=== PATIENT | male | born 1960 | race Caucasian/White ===

== ENCOUNTER 2017-02-07 09:33 | Inpatient (IN) | payer BC, OTHER ==
[2017-02-07] VITALS (14 sets, daily range): BP systolic 114–132; BP diastolic 76–92; PULSE 102–117; RESP 6–23; TEMP 99; Ht 177.8 cm; Wt 139.9 kg
[~2017-02-07] VITALS: Ht 177.8 cm; Wt 139.9 kg
[2017-02-07] MEDS ORDERED: NITROGLYCERIN 2% 1 GM OINT PKT TD STA (09:51)
[2017-02-07] MEDS ORDERED: ASPIRIN 81 MG TAB PO STA (09:51)
[2017-02-07] MEDS ORDERED: SOD CHLORIDE 0.9% 1,000 ML IV STA (09:51)
[2017-02-07] MEDS ORDERED: ONDANSETRON 4 MG INJ IV STA ×2 (09:57→12:24)
[2017-02-07] MEDS ORDERED: morphine 4 MG/ML VIAL IV STA (09:57)
[2017-02-07] MEDS ORDERED: NITROGLYCERIN (SL) 0.4 MG TAB SL PRN (10:00)
[2017-02-07] MEDS ORDERED: LOSA100T7 PO (10:34)
[2017-02-07] MEDS ORDERED: OMEP20CA16 PO (10:34)
--- NOTE | 2017-02-07 10:34 | RADRPT ---
PROCEDURE: XR Chest. CLINICAL INDICATION: Chest pain . TECHNIQUE: Single frontal chest x-ray. COMPARISON: None. FINDINGS: The lungs are clear of acute infiltrates, edema, effusions, or masses.. The cardiomediastinal silho uette is unremarkable. The osseous structures are intact. IMPRESSION: No acute cardiopulmonary disease. RPTAT: AA .Wong Dunbar MD, MD Date Time Electronically viewed and signed by .Wong Dunbar MD, MD on 02/07/2017 10:34 .L/
[2017-02-07] MEDS ORDERED: MULTI PO (10:35)
[2017-02-07] MEDS ORDERED: ASPI-664 PO (10:35)
[2017-02-07 11:04] LABS: ABNORMAL IP MESSAGE 1; BASOPHIL # 0.1 10^3/ul (0.0-0.1); BASOPHILS % 0.3 % (0.0-2.0); EOSINOPHILS % 0.1 % (0.0-7.0); HEMATOCRIT 48.3 % (42.0-52.0); HEMOGLOBIN 15.9 g/dl (14.0-18.0); LYMPHOCYTES # 1.2 10^3/ul (0.8-2.9); LYMPHOCYTES % 7.6 % (15.0-51.0); MEAN CORPUSCULAR HEMOGLOBIN 28.1 pg (29.0-33.0); MEAN CORPUSCULAR HGB CONC 32.9 g/dl (32.0-37.0); MEAN CORPUSCULAR VOLUME 85.5 fl (82.0-101.0); MEAN PLATELET VOLUME 10.6 fl (7.4-10.4); MONOCYTE # 1.8 10^3/ul (0.3-0.9); MONOCYTES % 11.1 % (0.0-11.0); NEUTROPHILS % 80.3 % (39.0-77.0); PLATELET COUNT 289 10^3/UL (140-415); POSITIVE DIFF @See below; RED BLOOD COUNT 5.65 10^6/ul (4.70-6.10); WHITE BLOOD COUNT 16.1 10^3/ul (4.8-10.8)
[2017-02-07] MEDS ORDERED: SODIUM CHLORIDE 0.9% 1L BAG IV* STA (11:19)
[2017-02-07 11:24] LABS: CALCIUM 9.2 mg/dl (8.4-10.2)
[2017-02-07] MEDS ORDERED: ACETAMINOPHEN 325 MG TAB PO ONE (11:30)
[2017-02-07 11:39] LABS: TROPONIN-I 18.8 ng/ml (0.00-0.12)
[2017-02-07] MEDS ORDERED: NITROGLYCERIN 50 MG/D5W (PMX) 250 ML IV STA (12:24)
[2017-02-07] MEDS ORDERED: SOD CHLORIDE 0.9% 100 ML ONE (12:41)
[2017-02-07] MEDS ORDERED: IODIXANOL LOCM 100 ML BTL ONE ×4 (12:41→16:06)
[2017-02-07] MEDS ORDERED: IODIXANOL LOCM 50 ML BTL ONE (12:41)
--- NOTE | 2017-02-07 13:10 | ERA ---
ER Documentation Chief Complaint Date/Time DATE: 02/07/17 TIME: 13:02 Chief Complaint CHEST PAIN AND BACK PAIN AFTER AIRPLANE FLIGHT. NO TRAUMA,ONSET LAST NIGHT HPI Patient is a 56-year-old male with hypertension who presents with chest pain. The patient flew from [place] yesterday on vacation. He had driven to [place] prior to that. However his symptoms started on Tuesday prior to leaving for this trip. He feels chest tightness in the midsternal area and also feels upper back pain. He says "I cannot get comfortable". He tried ibuprofen. He denies leg swelling. He called his primary doctor who told him to go to the nearest emergency department. Upon review of old medical records this is the patient's first visit to the ER. ROS All systems reviewed and are negative except as per history of present illness. Medications Home Meds Reported Medications Multivitamins* (Theragran*) 1 Tab Tab, 1 TAB PO DAILY, TAB 02/07/17 Aspirin (Low Dose Aspirin) 81 Mg Tablet.dr, 81 MG PO DAILY, #30 TAB 02/07/17 Omeprazole* (Omeprazole*) 20 Mg Capsule.dr, 20 MG PO DAILY, #30 CAP 02/07/17 Losartan Potassium* (Losartan Potassium*) 100 Mg Tablet, 100 MG PO DAILY, TAB 02/07/17 Allergies Allergies: Coded Allergies: No Known Allergy (Unverified , 02/07/17) PMhx/Soc Medical and Surgical Hx: pt denies Medical Hx, pt denies Surgical Hx Smoking Status: Unknown if ever smoked FmHx Family History: coronary disease Physical Exam Vitals Vital Signs Date Time Temp Pulse Resp B/P Pulse Ox O2 Delivery O2 Flow Rate FiO2 02/07/17 11:55 99.7 111 20 128/64 97 02/07/17 10:41 Nasal Cannula 02/07/17 09:40 100.2 121 20 141/98 97 Physical Exam Const: No acute distress Head: Atraumatic Eyes: Normal Conjunctiva ENT: Normal External Ears, Nose and Mouth. Neck: Full range of motion..~ No meningismus. Resp: Clear to auscultation bilaterally Cardio: Regular rate and rhythm, no murmurs Abd: Soft, non tender, non distended. Normal bowel sounds Skin: No petechiae or rashes Back: No midline or flank tenderness Ext: No cyanosis, or edema Neur: Awake and alert Psych: Normal Mood and Affect Result Diagram: 02/07/17 1015 02/07/17 1015 Results 24 hrs Laboratory Tests Test 02/07/17 10:15 02/07/17 11:45 White Blood Count 16.110^3/ul Red Blood Count 5.6510^6/ul Hemoglobin 15.9g/dl Hematocrit 48.3% Mean Corpuscular Volume 85.5fl Mean Corpuscular Hemoglobin 28.1pg Mean Corpuscular Hemoglobin Concent 32.9g/dl Red Cell Distribution Width 13.0% Platelet Count 70353^3/UL Mean Platelet Volume 10.6fl Neutrophils % 80.3% Lymphocytes % 7.6% Monocytes % 11.1% Eosinophils % 0.1% Basophils % 0.3% Nucleated Red Blood Cells % 0.0/100WBC Neutrophils # (Manual) 13.010^3/ul Lymphocytes # 1.210^3/ul Monocytes # 1.810^3/ul Eosinophils # 0.010^3/ul Basophils # 0.110^3/ul Nucleated Red Blood Cells # 0.010^3/ul Sodium Level 140mmol/L Potassium Level 4.0mmol/L Chloride Level 101mmol/L Carbon Dioxide Level 28mmol/L Anion Gap 15 Blood Urea Nitrogen 14mg/dl Creatinine 1.00mg/dl Glucose Level 119mg/dl Calcium Level 9.2mg/dl Troponin I 18.800ng/ml Lactic Acid Level 1.7mmol/L Current Medications Medications (Trade) Dose Ordered Sig/Roseanne Route PRN Reason Start Time Stop Time Status Last Admin Dose Admin Sodium Chloride (NS) 1,000 ml @ 1,000 mls/hr Q1H STAT IV 02/07/17 09:51 02/07/17 10:50 DC 02/07/17 10:30 Aspirin (Aspirin) 162 mg ONCE STAT PO 02/07/17 09:51 02/07/17 09:52 DC 02/07/17 10:33 Nitroglycerin (Nitroglycerin 2% Oint) 1 inch ONCE STAT TD 02/07/17 09:51 02/07/17 09:52 DC 02/07/17 10:33 Nitroglycerin (Nitroglycerin (Sl Tab) 0.4 Mg) 1 tab Q5M UP TO 3 DOSES PRN SL CHEST PAIN 02/07/17 10:00 Morphine Sulfate (morphine) 4 mg ONCE STAT IV 02/07/17 09:57 02/07/17 09:58 DC 02/07/17 10:34 Ondansetron HCl (Zofran Inj) 4 mg ONCE STAT IV 02/07/17 09:57 02/07/17 09:58 DC 02/07/17 10:34 Acetaminophen (Tylenol Tab) 650 mg ONCE ONCE PO 02/07/17 11:30 02/07/17 11:31 DC 02/07/17 12:15 Sodium Chloride (NS) 3,150 ml BOLUS OVER 2 HOURS STAT IV* 02/07/17 11:19 02/07/17 11:27 DC 02/07/17 11:45 Ondansetron HCl 4 mg 4 mg ONCE STAT IV 02/07/17 12:24 02/07/17 12:25 DC Nitroglycerin/ Dextrose (Nitroglycerin 50 Mg/D5W (Pmx)) 250 ml @ 6 mls/hr ONCE STAT IV 02/07/17 12:24 02/09/17 06:03 IV Flush 10 ml 10 ml STK-MED ONCE .ROUTE 02/07/17 12:41 02/07/17 12:42 DC Sodium Chloride (NS) 100 ml @ ud STK-MED ONCE .ROUTE 02/07/17 12:41 02/07/17 12:42 DC Iodixanol (Visipaque Locm) 100 ml STK-MED ONCE .ROUTE 02/07/17 12:41 02/07/17 12:42 DC Iodixanol (Visipaque Locm) 50 ml STK-MED ONCE .ROUTE 02/07/17 12:41 02/07/17 12:42 DC Procedures/MDM EKG #1 read by me: Rate/Rhythm: Sinus tachycardia at a rate of 123 Intervals: Normal Impression: Sinus tachycardia with ST elevation in lead V2, there is no contiguous leads with ST elevations, there is flipped T waves in leads I and aVL , overall impression is sinus tachycardia with ischemic changes but no STEMI EKG #2 read by me: Rate/Rhythm: Sinus tachycardia rate of 123 Intervals: Normal Impression: Sinus tachycardia with ST elevation in lead V2 but no contiguous ST elevations, no reciprocal depressions, flipped T waves in leads I and aVL, overall impression is sinus tachycardia with ischemic changes but no STEMI Chest x-ray negative per radiology. CTA of the chest is pending. Patient is a 56-year-old male with hypertension who presents with chest pain and upper back pain. The patient had an EKG done initially at 9:34 AM. I was given EKG at 9:50 AM and was concerned about the ST elevation in lead V2 however there is no contiguous lead elevation. I saw the patient immediately and his story was concerning for possible acute coronary syndrome but he appear to be in no distress. I repeated the EKG at 10:01 AM at 10:04 AM I sent the EKGs to Dr. Tobin who is the direct of real estate tone regulator. She does not feel that these EKGs are consistent with a STEMI and felt that it was likely related to an old anteroseptal infarct. Therefore a code STEMI was not called at that time. I was also concerned for possible pulmonary embolism or aortic dissection given the patient's back pain and tachycardia. A CT scan of the chest is pending at this time. The patient was given aspirin nitroglycerin empirically and his troponin returned at 18.8. I spoke to Dr. Tobin again at 12:19 PM to give her the results of the positive troponin. I asked her if she would like to consult the patient for urgent cardiac catheterization or if she would prefer the hospitalist to choose a direct of real estate of their choice. She preferred the hospitalist to the direct of real estate. I spoke with Dr. Nielsen from the panel team for admission to the intensive care unit. She has me to consult Dr. Henry and I called Dr. Henry and spoke with Dr. Zhu who is covering. I have sent him the EKGs for his review as well. The patient will likely need urgent cardiac catheterization. I am awaiting the results of the CTA of the chest prior to giving Lovenox. Critical Care: Time: 55 minutes excluding all billable procedures. Treatments/Evaluations: Close monitoring and treatment of unstable vital signs, cardiorespiratory, and neurologic status, while maintaining tight balance of fluid, respiratory, and cardiac interventions. Departure Diagnosis: Primary Impression: NSTEMI (non-ST elevated myocardial infarction) Additional Impression: Chest pain Qualified Code: I20.0 - Unstable angina pectoris Condition: Critical KYRIE HOBBS MD Feb 07, 2017 13:10
--- NOTE | 2017-02-07 13:58 | RADRPT ---
PROCEDURE: CT angiogram of the chest with contrast. CLINICAL INDICATION: Rule out aortic dissection. Chest pain. TECHNIQUE: CT scan of the chest with contrast was performed on a multidetector high-resolution CT scan. The patient was scanned following the uncomplicated intravenous administration of 115 ml of V isipaque 320. Coronal and sagittal reformatted images were obtained from the axial source [facility] of the chest with contrast protocols were performed. 2-D and 3-D reformats were performed. The total exam CTDI equals 73.82 mGy and the total exam DLP equals 488.89 mGy-cm. One or more of the following dose reduction techniques were used: - Automated exposure control. - Adjustment of the mA and/or kV according to patient size. Use of iterative reconstruction technique. COMPARISON: Chest series same day FINDINGS: The thoracic and proximal abdominal aorta are normal in size configuration without dissection or ane urysm. The pulmonary outflow tract, right and left main pulmonary arteries, right and left interlobar pulmo nary arteries appear unremarkable Without evidence of central pulmonary emboli. The brachial cephalic artery, right and left subclavian arteries, right and left proximal common car otid and vertebral arteries are unremarkable. The celiac axis and SMA are unremarkable. No evidence of mediastinal hilar or axillary lymphadenopathy. The heart is within normal limits in size without right heart strain. There is a tiny anterior pericardial effusion with a maximal depth of 7 mm. No evidence of pleural effusions or pneumothoraces. There is minimal dependent lung atelectasis. P eripheral discoid atelectasis / scarring involving the lingula of the left upper lobe. There is no evidence of acute infiltrates there are 2 calcified granulomas involving the right lower lobe. No o ther pulmonary nodules bilaterally. Those portions of the upper abdomen visualized are unremarkable. The thoracic and those portions of the upper abdominal wall visualized are unremarkable. There are mild degenerative changes of the thoracic spine. There is a mild dextrorotoscoliosis of t he thoracic spine. There are no acute osseous findings are osteoblastic/osteolytic lesions. IMPRESSION: 1. No evidence of aortic dissection or aneurysm. 2. No evidence of central pulmonary emboli. No evidence of pulmonary arterial hypertension or righ t heart strain. 3. Tiny anterior pericardial effusion maximal depth 7 mm. 4. Calcified granuloma in the right lower lobe. 5. No evidence of acute infiltrates, pleural effusions, pneumothorax or thoracic lymphadenopathy. RPTAT:AAJJ Cammy Carvajal Physician Date Time Electronically viewed and signed by Cammy Carvajal Physician on 02/07/2017 13:57 BM/
[2017-02-07] MEDS ORDERED: LIDOCAINE 1% (MDV) 20 ML INJ ONE (14:26)
[2017-02-07] MEDS ORDERED: HEPARIN 1000 UNITS/ML 10 ML INJ ONE (14:26)
[2017-02-07] MEDS ORDERED: FENTAnyl 50 MCG/ML VIAL ONE (14:26)
[2017-02-07] MEDS ORDERED: VERAPAMIL 5 MG INJ ONE (14:27)
[2017-02-07] MEDS ORDERED: NITROGLYCERIN (IC) 100 MCG/ML INJ ONE (14:31)
[2017-02-07] MEDS ORDERED: TICAGRELOR 90 MG TABLET ONE (15:52)
--- NOTE | 2017-02-07 16:13 | CONS ---
DATE OF ADMISSION: 02/07/2017 DATE OF CONSULTATION: 02/07/2017 HISTORY OF PRESENT ILLNESS: Mr. Pat is a 56-year-old gentleman with history of hypertension, hyperlipidemia, sleep apnea, and obesity. He reports that on this past , he began developing back pain with intermittent chest pain as well. It came and went. It was associated intermittently with nausea. On Tuesday night, the pain was more severe, and again on Tuesday night, last night, he experienced a severe episode of back pain with chest pressure, 7/10. He called his physician's office who told him to go to the emergency department. Currently, he reports that his pain is less, although still experiencing 4/10 pain. Troponin drawn here in the emergency department noted to be elevated at 18. EKG noted to show Q-waves and slight ST elevations in the anterior leads. HOME MEDICATION: 1. Aspirin. 2. Omeprazole. 3. Losartan. 4. Multivitamin. ALLERGIES: NO KNOWN ALLERGIES. FAMILY HISTORY: Significant for coronary disease. PHYSICAL EXAMINATION: GENERAL APPEARANCE: He is in no distress. VITAL SIGNS: Temperature 99, pulse 105, blood pressure 110/76, oxygen saturation 97 percent on nasal cannula. RESPIRATORY: There are no crackles bilaterally. HEART: Regular rate and rhythm. ABDOMEN: Obese, soft. EXTREMITIES: Reveal no edema. ASSESSMENT AND PLAN: Mr. Pat has a late presentation of what was likely an anterior wall myocardial infarction ([place]) sometime in the last 48 hours. Time course is difficult to tell, as he still does report some persistent chest pressure. In addition, he is tachycardic currently. Given the fact that the timeline for the ST-elevation myocardial infarction ([place]) is uncertain, and that he has persistent symptoms, although he is clearly a late presentation, I have requested Dr. Thomas do an emergent angiogram today. A repeat set of troponin is pending as well. Thank you very much for this consultation. Dictated By: Maynor Zhu MD /puja/[facility] /Document#: [id number]
--- NOTE | 2017-02-07 16:26 | OPPN ---
Date/Time of Note Date/Time of Note DATE: 02/07/17 TIME: 16:24 Operative Report Preoperative Diagnosis NSTEMI Postoperative Diagnosis NSTEMI / late presentation of PR Operation/Procedure Performed coronary angiogram, left heart cath, pci with drug-eluting stent to the first OM vessel Provider: VIVEK SAM Anesthesia Type: other (procedural sedation) Estimated blood loss: 100 - 150 ml's Transfusion Required: no Specimen: none Grafts/Implants 2.25x20 mm stent to OM1 Complications: no VIVEK SAM Feb 07, 2017 16:26
[2017-02-07] MEDS ORDERED: SOD CHLORIDE 0.9% 1,000 ML IV SCH (16:33)
--- NOTE | 2017-02-07 17:00 | OPR ---
Date/Time of Note Date/Time of Note DATE: 02/07/17 TIME: 16:44 Operative Report Procedure Date: Feb 07, 2017 Preoperative Diagnosis NSTEMI Postoperative Diagnosis NSTEMI - culprit is OM1, ischemic cardiomyopathy Operation Performed coronary angiogram, left heart catheterization, left ventriculography, PCI of OM1 with placement of 2.25x20 mm Synergy drug-eluting stent Surgeon: VIVEK SAM Anesthesia Type: other (procedural sedation) Estimated Blood Loss: 100 - 150 ml's Transfusion Required: no Complications: no Pt Condition Post Procedure: stable Disposition: other (icu) Indications 56 year-old presents with 4 days of malaise, with worsening of abdominal, back, and chest pain today. 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 Operative\Procedure Findings LM - normal LAD - 50% mid lesion, 95% proximal D1 (small vessel less than 2 mm) LCX - 99% high OM1 with ANDREW 2 flow, lesion length 14 mm from ostium of the vessel to the most critical portion of the lesion, type B lesion RCA - dominant vessel with mild luminal irregularities LV - EF 35% with akinesis of mid-distal anterolateral wall and apex, gradient upon pullback 13 mm Procedure Description Informed consent obtained from patient, questions answered. Patient brought urgently to the cardiac catheterization laboratory. The right wrist was prepped and draped. Patient received versed and fentanyl for sedation, and 5000 units of heparin before starting the procedure. Lidocaine used for local anesthesia. Then using modified Seldinger technique, the right radial artery was accessed and a 6 f sheath placed. Verapamil 2.5 mg and nitroglycerin 200 mcg administered through sheath. A Marcos catheter was advanced over wire to the ascending thoracic aorta. The catheter engaged the right coronary artery. Angiography performed with injection of contrast under cine. Then a FL3.5 guide advanced, and engaged the LM. Angiography performed, and culprit lesion of OM1 identified. All catheters engaged over a 260 cm J-wire. The patient received an additional 3000 units of heparin, ACT checked and noted to be over 200. A Luge wire crossed the OM1 lesion. However, with the wire in place, there was near occlusion of the vessel with andrew 0-1 flow. Multiple balloons would not cross the lesion. A Guidezilla device was advanced to the LM /OM, and with this a 1.2x12 mm balloon crossed the lesion, was inflated twice. Following this, a 2.25x20 mm Synergy stent easily crossed the lesion. Stent placement was carefully ascertained with multiple views to make sure the stent came back to the ostium of the OM1 and covered the lesion adequately. Angiography including a wire out shot demonstrated good apposition of the stent and no residual dissection. A pigtail was advanced to the left ventricle. Pressures measured and an LV- gram was performed, pullback gradient assessed, and pigtail removed over wire. An additional 200 mcg nitroglycerin administered through the sidearm of the sheath, and sheath removed and replaced with a TR band. Patient left the procedure room in stable condition. VIVEK SAM Feb 07, 2017 17:00
[2017-02-07] MEDS ORDERED: ONDANSETRON 4 MG INJ IV PRN (17:30)
[2017-02-07 18:38] LABS: CK-MB 72.8 ng/ml (0.0-2.4); TROPONIN-I 25.7 ng/ml (0.00-0.12)
[2017-02-07] MEDS ORDERED: METOPROLOL 25 MG TAB PO SCH (21:00)
[2017-02-07] MEDS: ATORVASTATIN 80 MG TAB PO SCH (21:02)
[2017-02-07] MEDS: DOCUSATE SODIUM 100 MG CAP PO SCH (21:02)
[2017-02-07] MEDS: LOSARTAN 25 MG TAB PO SCH (21:02)
[2017-02-07] MEDS: TICAGRELOR 90 MG TABLET PO SCH (21:07)
[2017-02-07 22:46] LABS: CK-MB 67.5 ng/ml (0.0-2.4); TROPONIN-I 34.6 ng/ml (0.00-0.12)
[2017-02-08] VITALS (21 sets, daily range): BP systolic 109–144; BP diastolic 72–106; PULSE 92–120; RESP 14–30
[2017-02-08 05:28] LABS: ABNORMAL IP MESSAGE 1; BASOPHILS % 0.2 % (0.0-2.0); EOSINOPHILS % 0.1 % (0.0-7.0); HEMATOCRIT 42.9 % (42.0-52.0); LYMPHOCYTES # 0.9 10^3/ul (0.8-2.9); MEAN CORPUSCULAR HEMOGLOBIN 28.8 pg (29.0-33.0); MEAN CORPUSCULAR HGB CONC 32.6 g/dl (32.0-37.0); MEAN CORPUSCULAR VOLUME 88.3 fl (82.0-101.0); MEAN PLATELET VOLUME 10.6 fl (7.4-10.4); MONOCYTES % 11.4 % (0.0-11.0); NEUTROPHILS % 82.8 % (39.0-77.0); PLATELET COUNT 245 10^3/UL (140-415); POSITIVE DIFF @See below; RED BLOOD COUNT 4.86 10^6/ul (4.70-6.10); RED CELL DISTRIBUTION WIDTH 13.4 % (11.5-14.5); WHITE BLOOD COUNT 17.3 10^3/ul (4.8-10.8)
--- NOTE | 2017-02-08 05:49 | HP ---
DATE OF ADMISSION: 02/07/2017 PRESENTING COMPLAINT: Chest pain. HISTORY OF PRESENTING COMPLAINT: A 56-year-old male with a past medical history of obesity and hypertension who states that he has been having chest pain for the last 3-4 days. Pain was said to be intermittent on the left side of his chest, radiating to his back. The pain was stated to be pressure-like in sensation. Patient also had some shortness of breath as well as nausea associated with pain. 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 In the emergency room, he had an EKG done that was abnormal, but elevated troponins to 18. Initially it was thought that it was a non-ST elevation myocardial infarction, but after cardiology review, he was thought to have had an ST elevation myocardial infarction, and the decision was made to take him to the catheterization lab as a code STEMI. He was taken to the catheterization lab, and they did a PCI successfully. Patient is currently in Intensive Care Unit for postcatheterization management with supportive care. PAST MEDICAL HISTORY: 1. Hypertension. 2. Dyslipidemia. 3. Obesity. 4. Possible sleep apnea. SURGICAL HISTORY: Patient denied. ALLERGIES: NO KNOWN DRUG ALLERGIES. SOCIAL HISTORY: The patient denies tobacco, alcohol, or illicit drug use. FAMILY HISTORY: Positive for heart disease. REVIEW OF SYSTEMS: A 10-point review of systems was done. Pertinent findings are reviewed in HPI. PHYSICAL EXAMINATION: VITAL SIGNS: When he first came in, he had a mild temperature of 102. This has improved now to 99, but his heart rate is still somewhat fast at 110. The patient's blood pressure 107/76. Oxygen saturation 97 percent on 2L GENERAL: Showed an obese male alert and cranky, in no distress. HEENT: Head is normocephalic. Pupils are equal, round, and reactive. Mucous membranes are moist. Oropharynx clear of erythema or exudate. NECK: Supple without JVD. RESPIRATORY: Diminished but clear BS CARDIAC: S1, S2. Within normal limits. ABDOMEN: Obese, soft, nontender. Normal, active bowel sounds. EXTREMITIES: There is no lower extremity edema. NEUROLOGIC: He has no focal deficits. SKIN: No rash or jaundice. LABORATORY VALUES: Leukocytes 16,000, but normal platelet count, but he did have a neutrophil predominance. His chemistry, troponin was 18.8 on admission. The rest of his basic metabolic profile was unremarkable. Lactic acid was also within normal limits. IMAGING: CT angiogram of the chest showed no evidence of infection, no evidence of pulmonary hypertension. No PE. No acute infiltrates. A chest x-ray also shows no acute cardiopulmonary abnormalities. EKG findings are summarized in HPI. ASSESSMENT: A 56-year-old male who came in with chest pain, radiating to the back of 4 days' duration, now managed as following. 1. ST elevation myocardial infarction, status post emergent angiogram. - Patient has presentation of a late acute infarct on EKG . He is status post angiogram PCI with stent. 2. Hypertension with good control. 3. Systemic inflammatory response syndrome secondary to number 1. 4. Dyslipidemia 5. Morbid obesity with BMI of 41. 6. Possible sleep apnea. PLAN: Continue ICU monitoring and management. Continue to follow cardiology recommendations regarding antihypertensives and cardiac medications. Continue pain control, antiemetics, and antibiotics as needed. Further recommendations will depend on his clinical course. For prophylaxis, he will be on SCDs and a PPI. Dictated By: Dmitry Nielsen MD /puja/renny /Document#: [id number] DIANE
[2017-02-08 06:04] LABS: ALBUMIN 3.1 g/dl (3.3-4.9); BILIRUBIN,INDIRECT 1.1 mg/dl (0-1.1); BILIRUBIN,TOTAL 1.1 mg/dl (0.2-1.3); MAGNESIUM 1.8 mg/dl (1.7-2.5); TOTAL PROTEIN 5.9 g/dl (6.1-8.1)
[2017-02-08 06:06] LABS: CALCIUM 8.1 mg/dl (8.4-10.2); CHOL/HDL RATIO 4.2 RATIO; CREATININE 1.07 mg/dl (0.61-1.24); POTASSIUM 3.8 mmol/L (3.5-5.1)
[2017-02-08 06:28] LABS: THYROID STIMULATING HORMONE 2.38 MIU/L (0.465-4.680)
[2017-02-08 06:29] LABS: TROPONIN-I 38.1 ng/ml (0.00-0.12)
[2017-02-08] MEDS: PANTOPRAZOLE (EC) 40 MG TAB PO SCH (07:04)
[2017-02-08] MEDS ORDERED: METOPROLOL (XL) 100 MG TAB PO SCH (09:00)
[2017-02-08] MEDS: ASPIRIN (EC) 81 MG TAB PO SCH (10:01)
[2017-02-08] MEDS: DOCUSATE SODIUM 100 MG CAP PO SCH ×2 (10:01→21:24)
[2017-02-08] MEDS: LOSARTAN 25 MG TAB PO SCH ×2 (10:02→21:24)
[2017-02-08] MEDS: TICAGRELOR 90 MG TABLET PO SCH (10:04)
--- NOTE | 2017-02-08 11:06 | RADRPT ---
Echocardiogram Report Patient Name: MAAME BUTLER Gender: Male Date: 1960 Study Date: 08-Feb-2017 Picker Tender: Xiang Aguirre RDCS Location: [facility] Ref. Physician: LAURA SAM Quality: Adequate Procedures: Transthoracic echocardiogram with complete 2D, M-Mode, and doppler examination. Indications: Myocardial Infarction. 2D/M Mode Doppler Measurement Value Normal Ranges Measurement Value Normal Ranges LVIDd 2D 3.8 3.5 - 5.6 cm AV Peak Joel 1.5 m/sec LVIDs 2D 2.8 2.1 - 4.1 cm AV Peak PG 9.0 mmHg FS 2D 26.7 % LVOT Peak Joel 1.2 m/sec LVPWd 2D 1.3 0.6 - 1.1 cm LVOT Peak PG 6.0 mmHg IVSd 2D 1.4 0.6 - 1.1 cm MV E Peak Joel 0.7 m/sec IVS/LVPW 2D 1.1 MV A Peak Joel 1.0 m/sec AoR Diam 2D 2.9 2.0 - 3.7 cm MV E/A 0.7 LA/Ao 2D 1 0 - 1 MV Decel Time 99 msec LA Dimen 2D 3.8 2.3 - 4.0 cm MV E/A 0.7 Findings Left Ventricle: Normal left ventricular cavity size. Moderate concentric left ventricular hypertrophy. Severe left ventricular systolic dysfunction. Ejection fraction is visually estimated at 20 %. Tissue Doppler/Mitral Doppler indices are consistent with impaired relaxation (Stage I diastolic dysfunction). These segments of the LV are hypokinetic apical septum and anteroseptum mid segment. Right Ventricle: Normal right ventricular size. Normal right ventricular systolic function. Left Atrium: The left atrium is normal in size. Right Atrium: The right atrium is normal in size. Mitral Valve: Normal appearance and function of the mitral valve with trace physiologic regurgitation. Aortic Valve: No significant aortic stenosis or insufficiency. Aortic cusps appear mildly calcified. Tricuspid Valve: Normal appearance of the tricuspid valve. Unable to obtain RVSP due to minimal presence of tricuspid regurgitation. Pulmonic Valve: Pulmonic valve not well visualized. Pericardium: Normal pericardium with no significant pericardial effusion. Aorta: Normal aortic root. IVC: Dilated IVC without respiratory collapse consistent with elevated right atrial pressure. Conclusions Technically difficult study due to body habitus. Severely reduced left ventricular systolic function with akinesis of the apex and mid-distal septum and anteroseptum. Impaired diastolic function. Dilated IVC suggestive of elevated right heart pressures. Electronically Signed By: Laura Sam 08-Feb-2017 11:06:07 0700 Patient Name: MAAME BUTLER Study Date: 08-Feb-2017 [id number]
--- NOTE | 2017-02-08 11:12 | PN ---
Date/Time of Note Date/Time of Note DATE: 02/08/17 TIME: 10:20 Assessment/Plan VTE Prophylaxis VTE Prophylaxis Intervention: ambulation Lines/Catheters IV Catheter Type (from Nrs): Peripheral IV Assessment/Plan Chief Complaint/Hosp Course 56 year-old with late presentation of STEMI, with a patent LAD with moderate disease, and a severely narrowed proximal high OM, underwent angioplasty of the high OM. Now with persistent tachycardia, and severely reduced LVEF on echo. Problems: Assessment/Plan [place] s/p ALEXUS to OM1 hypertension morbid obesity sinus tachycardia Plan: Observe in hospital one more day, given tachycardia and significantly reduced EF Increased metoprolol to succinate formulation 100 mg daily, and may increase to 200 mg prior to discharge Continue losartan, and uptitrate as tolerated Start spironolactone given low ef Discussed healthy diet, plant-based food choices, regular exercise Continue atorvastati, asa and brilinta Pt may go to telemetry Anticipate dc home tomorrow if stable overnight Subjective 24 Hr Interval Summary Free Text/Dictation Chest pain is better, still mildly lingering. No events overnight. Heart rate is elevated in 110's. Exam/Review of Systems Vital Signs Vitals Vital Signs Date Time Temp Pulse Resp B/P Pulse Ox O2 Delivery O2 Flow Rate FiO2 02/08/17 08:00 108 02/08/17 06:00 16 122/85 99 Nasal Cannula 2.0 02/08/17 04:00 99.0 Intake and Output 02/07/17 02/07/17 02/08/17 15:00 23:00 07:00 Intake Total 625 ml 525 ml Output Total 800 ml Balance -175 ml 525 ml Exam Constitutional: alert, oriented, well developed Psych: nl mood/affect, no complaints Head: atraumatic, normocephalic Eyes: EOMI, nl conjunctiva, nl lids, nl sclera ENMT: nl external ears & nose, nl lips & teeth, nl nasal mucosa & septum Neck: supple (thick neck, cannot assess jvp) Respiratory: clear to auscultation, normal air movement Cardiovascular: nl pulses, regular rate and rhythm Gastrointestinal: non-tender, soft Musculoskeletal: nl extremities to inspection Extremities: normal pulses Neurological: nl mental status, nl speech Skin: nl turgor, No rash or lesions Additional Comments right wrist intact Results Result Diagram: 9/5/17 0440 9/5/17 0440 Results 24 hrs Laboratory Tests Test 02/07/17 11:45 02/07/17 13:10 02/07/17 17:37 02/07/17 21:58 Lactic Acid Level 1.7 1.3 1.6 Creatine Kinase 1237 H 1280 H Creatine Kinase Index 5.9 5.3 Creatinine Kinase MB (Mass) 72.80 H 67.50 H Troponin I 25.700 *H 34.600 *H Test 02/08/17 04:40 White Blood Count 17.3 H Red Blood Count 4.86 Hemoglobin 14.0 Hematocrit 42.9 Mean Corpuscular Volume 88.3 Mean Corpuscular Hemoglobin 28.8 L Mean Corpuscular Hemoglobin Concent 32.6 Red Cell Distribution Width 13.4 Platelet Count 245 Mean Platelet Volume 10.6 H Neutrophils % 82.8 H Lymphocytes % 5.0 L Monocytes % 11.4 H Eosinophils % 0.1 Basophils % 0.2 Nucleated Red Blood Cells % 0.0 Neutrophils # (Manual) 14.4 H Lymphocytes # 0.9 Monocytes # 2.0 H Eosinophils # 0.0 Basophils # 0.0 Nucleated Red Blood Cells # 0.0 Sodium Level 140 Potassium Level 3.8 Chloride Level 107 Carbon Dioxide Level 25 Anion Gap 12 Blood Urea Nitrogen 15 Creatinine 1.07 Glucose Level 125 Hemoglobin A1c 5.8 Calcium Level 8.1 L Magnesium Level 1.8 Total Bilirubin 1.1 Direct Bilirubin 0.00 Indirect Bilirubin 1.1 Aspartate Amino Transf (AST/SGOT) 178 H Alanine Aminotransferase (ALT/SGPT) 57 Alkaline Phosphatase 61 Troponin I 38.100 *H Total Protein 5.9 L Albumin 3.1 L Triglycerides Level 81 Cholesterol Level 152 LDL Cholesterol, Calculated 100 HDL Cholesterol 36 Cholesterol/HDL Ratio 4.2 Thyroid Stimulating Hormone (TSH) 2.380 Medications Medications Current Medications Aspirin (Halfprin) 81 mg DAILY PO Last administered on 02/08/17 10:01; Admin Dose 81 MG; Start 02/08/17 at 09:00 Ticagrelor (Brilinta) 90 mg BID PO Last administered on 02/08/17 10:04; Admin Dose 90 MG; Start 02/07/17 at 21:00 Losartan Potassium (Cozaar) 25 mg BID PO Last administered on 02/08/17 10:02; Admin Dose 25 MG; Start 02/07/17 at 21:00 Atorvastatin Calcium (Lipitor) 80 mg DAILY@21 PO Last administered on 02/07/17 21:02; Admin Dose 80 MG; Start 02/07/17 at 21:00 Pantoprazole (Protonix Tab) 40 mg DAILY@06 PO Last administered on 02/08/17 07: 04; Admin Dose 40 MG; Start 02/08/17 at 06:00 Docusate Sodium (Colace) 100 mg BID PO Last administered on 02/08/17 10:01; Admin Dose 100 MG; Start 02/07/17 at 21:00 Ondansetron HCl (Zofran Inj) 4 mg Q6H PRN IV NAUSEA AND/OR VOMITING; Start 02/07 at 17:30 Metoprolol Succinate (Toprol Xl) 100 mg DAILY PO Last administered on 02/08/17 10:02; Admin Dose 100 MG; Start 02/08/17 at 09:00 Procedures Procedures Echo reviewed, severely reduced lvef of about 20%, septal, anterior, and apical akinesis. Dilated IVC suggests elevated RA pressures. EKG this am demonstrates sinus tach, persistent Q waves in the anterior leads, minimal ST elevation in anterior leads VIVEK SAM Feb 08, 2017 10:30
[2017-02-08] MEDS: SPIRONOLACTONE 25 MG TAB PO SCH (12:35)
[2017-02-08] MEDS: SOD CHLORIDE 0.9% 1,000 ML IV SCH (12:36)
[2017-02-08] MEDS ORDERED: ACETAMINOPHEN 325 MG TAB PO PRN (18:30)
--- NOTE | 2017-02-08 19:19 | RADRPT ---
PROCEDURE: XR Chest. CLINICAL INDICATION: Dyspnea and possible atelectasis TECHNIQUE: AP Portable chest. COMPARISON: Chest x-ray dated 02/07/[address] dated 02/07/2017 FINDINGS: The soft tissues and bones are remarkable for multiple EKG leads superimposed on chest wall. No foc al infiltrates, masses or effusions are present. Again noted is a calcified right lower lobe granulo ma. The mediastinum and heart are normal. No pneumothorax is present. IMPRESSION: 1. No radiographic evidence for acute cardiopulmonary disease 2. Calcified right lower lobe granuloma RPTAT: HDC .Nicolle Gutierrez MD, MD Date Time Electronically viewed and signed by .Nicolle Gutierrez MD, on 02/08/2017 19:18 .C/
[2017-02-08] MEDS: PIPER-TAZO 3.375 GM IV (PMX) 100 ML IVPB SCH (20:00)
[2017-02-08] MEDS: ATORVASTATIN 80 MG TAB PO SCH (21:24)
--- NOTE | 2017-02-08 23:00 | PN ---
Date/Time of Note Date/Time of Note DATE: 02/08/17 TIME: 22:59 Assessment/Plan VTE Prophylaxis VTE Prophylaxis Intervention: SCD's Lines/Catheters IV Catheter Type (from Nrsg): Peripheral IV Assessment/Plan Assessment/Plan ASSESSMENT: A 56-year-old male who came in with chest pain, radiating to the back of 4 days' duration, now managed as follows: . 1. ST elevation myocardial infarction, status post emergent angiogram. - Patient had presentation of a late acute infarct on EKG . He is status post angiogram PCI with stent. 2. Hypertension with good control. 3. Systemic inflammatory response syndrome secondary to number 1: improved 4. Dyslipidemia 5. Morbid obesity with BMI of 41. 6. Possible sleep apnea. PLAN: Patient doing well Cleared for Tele transfer Gentle IVF hydration for rhabdo Diet and life style counselling Continue supportive care and current mgt Continue to watch trop levels Prophylaxis: SCDS Subjective 24 Hr Interval Summary Free Text/Dictation Patient seen and examined. Nursing reports no acute overnight events. Patient denies further chest or back pain Still feels some lethargy Has been ,ambulant Exam/Review of Systems Vital Signs Vitals Vital Signs Date Time Temp Pulse Resp B/P Pulse Ox O2 Delivery O2 Flow Rate FiO2 02/08/17 20:30 100.0 99 20 111/72 98 02/08/17 17:55 Room Air 02/08/17 10:00 2.0 Intake and Output 02/07/17 02/07/17 02/08/17 15:00 23:00 07:00 Intake Total 625 ml 525 ml Output Total 800 ml Balance -175 ml 525 ml Exam Constitutional: alert, obese, oriented, No distress Psych: nl mood/affect Head: atraumatic, normocephalic Eyes: PERRL ENMT: mucosa pink and moist Neck: non-tender, supple Respiratory: clear to auscultation, diminished breath sounds (likely 2/2 habitus) Cardiovascular: nl pulses, regular rate and rhythm Gastrointestinal: bowel sounds, non-tender, other (protuberant), soft Musculoskeletal: nl extremities to inspection Extremities: No edema Neurological: nl mental status, nl speech, No focal weakness Skin: No rash or lesions Results Result Diagram: 02/08/1743902/08/17439 Results 24 hrs Laboratory Tests Test 02/08/17 04:40 White Blood Count 17.3 H Red Blood Count 4.86 Hemoglobin 14.0 Hematocrit 42.9 Mean Corpuscular Volume 88.3 Mean Corpuscular Hemoglobin 28.8 L Mean Corpuscular Hemoglobin Concent 32.6 Red Cell Distribution Width 13.4 Platelet Count 245 Mean Platelet Volume 10.6 H Neutrophils % 82.8 H Lymphocytes % 5.0 L Monocytes % 11.4 H Eosinophils % 0.1 Basophils % 0.2 Nucleated Red Blood Cells % 0.0 Neutrophils # (Manual) 14.4 H Lymphocytes # 0.9 Monocytes # 2.0 H Eosinophils # 0.0 Basophils # 0.0 Nucleated Red Blood Cells # 0.0 Sodium Level 140 Potassium Level 3.8 Chloride Level 107 Carbon Dioxide Level 25 Anion Gap 12 Blood Urea Nitrogen 15 Creatinine 1.07 Glucose Level 125 Hemoglobin A1c 5.8 Calcium Level 8.1 L Magnesium Level 1.8 Total Bilirubin 1.1 Direct Bilirubin 0.00 Indirect Bilirubin 1.1 Aspartate Amino Transf (AST/SGOT) 178 H Alanine Aminotransferase (ALT/SGPT) 57 Alkaline Phosphatase 61 Troponin I 38.100 *H Total Protein 5.9 L Albumin 3.1 L Triglycerides Level 81 Cholesterol Level 152 LDL Cholesterol, Calculated 100 HDL Cholesterol 36 Cholesterol/HDL Ratio 4.2 Thyroid Stimulating Hormone (TSH) 2.380 Medications Medications Current Medications Aspirin (Halfprin) 81 mg DAILY PO Last administered on 02/08/17 10:01; Admin Dose 81 MG; Start 02/08/17 at 09:00 Ticagrelor (Brilinta) 90 mg BID PO Last administered on 02/08/17 10:04; Admin Dose 90 MG; Start 02/07/17 at 21:00 Losartan Potassium (Cozaar) 25 mg BID PO Last administered on 02/08/17 21:24; Admin Dose 25 MG; Start 02/07/17 at 21:00 Atorvastatin Calcium (Lipitor) 80 mg DAILY@21 PO Last administered on 02/08/17 21:24; Admin Dose 80 MG; Start 02/07/17 at 21:00 Pantoprazole (Protonix Tab) 40 mg DAILY@06 PO Last administered on 02/08/17 07: 04; Admin Dose 40 MG; Start 02/08/17 at 06:00 Docusate Sodium (Colace) 100 mg BID PO Last administered on 02/08/17 21:24; Admin Dose 100 MG; Start 02/07/17 at 21:00 Ondansetron HCl (Zofran Inj) 4 mg Q6H PRN IV NAUSEA AND/OR VOMITING; Start 02/07 at 17:30 Spironolactone 25 mg 25 mg DAILY PO Last administered on 02/08/17 12:35; Admin Dose 25 MG; Start 02/08/17 at 12:00 Sodium Chloride (NS) 1,000 ml @ 100 mls/hr Q10H IV Last administered on 12:36; Admin Dose 100 MLS/HR; Start 02/08/17 at 12:00 Acetaminophen 650 mg 650 mg Q4H PRN PO PAIN AND OR ELEVATED TEMP Last administered on 02/08/17 18:26; Admin Dose 650 MG; Start 02/08/17 at 18:30 Piperacillin Sod/ Tazobactam Sod (Zosyn 3.375gm/ 100 ml (Pmx)) 100 ml @ 200 mls /hr Q8 IVPB Last administered on 02/08/17 20:00; Admin Dose 200 MLS/HR; Start 02/08/17 at 20:00 Metoprolol Succinate (Toprol Xl) 200 mg DAILY PO ; Start 02/09/17 at 09:00 RONALDO CANELA Feb 08, 2017 23:00
[2017-02-09] VITALS (10 sets, daily range): BP systolic 118–142; BP diastolic 70–91; PULSE 90–120; RESP 17–19
[2017-02-09] MEDS: SOD CHLORIDE 0.9% 1,000 ML IV SCH ×3 (00:37→17:45)
[2017-02-09] MEDS: TICAGRELOR 90 MG TABLET PO SCH ×3 (00:41→22:22)
[2017-02-09 01:25] LABS: BENZODIAZEPINES Positive (NEGATIVE); OPIATES Positive (NEGATIVE)
[2017-02-09 01:36] LABS: BARBITURATES Negative (NEGATIVE); CANNABINOIDS Negative (NEGATIVE); COCAINE Negative (NEGATIVE)
--- NOTE | 2017-02-09 06:47 | PN ---
Date/Time of Note Date/Time of Note DATE: 02/09/17 TIME: 06:41 Assessment/Plan VTE Prophylaxis VTE Prophylaxis Intervention: ambulation Lines/Catheters IV C[facility]ter Type (from [facility]): Peripheral IV Assessment/Plan Chief Complaint/Hosp Course 56 year-old with late presentation of STEMI, with a patent LAD with moderate disease, and a severely narrowed proximal high OM, underwent angioplasty of the high OM. Now with severely reduced LVEF on echo. Problems: Assessment/Plan Late presentation of STEMI Ischemic cardiomyopathy Leukocytosis and fever without obvious source Diarrhea Sinus tachycardia- improved, but exacerbated by fever Recommendations: Stable for discharge from a cardiac standpoint, but may need further workup for fever and leukocytosis Should go home on : Asa 81 mg daily, ticagrelor 90 mg bid, atorvastatin 80 mg qhs, metoprolol succinate 200 mg daily, spironolactone 25 mg po daily, losartan 25 mg po bid If remains in hospital could uptitrate losartan to 50 mg bid if bp tolerates Discussed lifestyle/diet/exercise Patient has made contacts to arrange for follow-up at home in [place]. He has my contact information if he or his doctors have questions about his hospital course. Subjective 24 Hr Interval Summary Free Text/Dictation Febrile overnight to 101.4. Patient had episodes of diarrhea. No chest pain. Exam/Review of Systems Vital Signs Vitals Vital Signs Date Time Temp Pulse Resp B/P Pulse Ox O2 Delivery O2 Flow Rate FiO2 02/09/17 04:33 98.4 98 19 136/80 98 02/08/17 20:00 Nasal Cannula 2.0 Intake and Output 02/08/17 02/08/17 02/09/17 14:59 22:59 06:59 Intake Total 150 ml 540 ml Output Total 350 ml 150 ml Balance -200 ml 390 ml Exam Constitutional: alert, oriented, well developed Psych: nl mood/affect, no complaints Head: atraumatic, normocephalic Eyes: EOMI, PERRL, nl conjunctiva, nl lids, nl sclera ENMT: nl external ears & nose, nl lips & teeth, nl nasal mucosa & septum Neck: supple, No bruits Respiratory: clear to auscultation, normal air movement Cardiovascular: regular rate and rhythm Gastrointestinal: non-tender, soft Musculoskeletal: nl extremities to inspection Extremities: No edema Neurological: nl mental status, nl speech Skin: nl turgor, No rash or lesions Results Result Diagram: 02/08/17 0440 02/08/17 0440 Results 24 hrs Laboratory Tests Test 02/08/17 21:30 Urine Opiates Screen Positive Urine Barbiturates Negative Urine Amphetamines Screen Negative Urine Benzodiazepines Screen Positive Urine Cocaine Screen Negative Urine Cannabinoids Negative Medications Medications Current Medications Aspirin (Halfprin) 81 mg DAILY PO Last administered on 02/08/17 10:01; Admin Dose 81 MG; Start 02/08/17 at 09:00 Ticagrelor (Brilinta) 90 mg BID PO Last administered on 02/09/17 00:41; Admin Dose 90 MG; Start 02/07/17 at 21:00 Losartan Potassium (Cozaar) 25 mg BID PO Last administered on 02/08/17 21:24; Admin Dose 25 MG; Start 02/07/17 at 21:00 Atorvastatin Calcium (Lipitor) 80 mg DAILY@21 PO Last administered on 02/08/17 21:24; Admin Dose 80 MG; Start 02/07/17 at 21:00 Pantoprazole (Protonix Tab) 40 mg DAILY@06 PO Last administered on 02/08/17 07: 04; Admin Dose 40 MG; Start 02/08/17 at 06:00 Docusate Sodium (Colace) 100 mg BID PO Last administered on 02/08/17 21:24; Admin Dose 100 MG; Start 02/07/17 at 21:00 Ondansetron HCl (Zofran Inj) 4 mg Q6H PRN IV NAUSEA AND/OR VOMITING; Start 02/07 at 17:30 Spironolactone 25 mg 25 mg DAILY PO Last administered on 02/08/17 12:35; Admin Dose 25 MG; Start 02/08/17 at 12:00 Sodium Chloride (NS) 1,000 ml @ 100 mls/hr Q10H IV Last administered on 00:37; Admin Dose 100 MLS/HR; Start 02/08/17 at 12:00 Acetaminophen 650 mg 650 mg Q4H PRN PO PAIN AND OR ELEVATED TEMP Last administered on 02/08/17 18:26; Admin Dose 650 MG; Start 02/08/17 at 18:30 Piperacillin Sod/ Tazobactam Sod (Zosyn 3.375gm/ 100 ml (Pmx)) 100 ml @ 200 mls /hr Q8 IVPB Last administered on 02/08/17t 20:00; Admin Dose 200 MLS/HR; Start 02/08/17 at 20:00 Metoprolol Succinate (Toprol Xl) 200 mg DAILY PO ; Start 02/09/17 at 09:00 VIVEK SAM Feb 09, 2017 06:47
[2017-02-09] MEDS: PANTOPRAZOLE (EC) 40 MG TAB PO SCH (07:00)
[2017-02-09] MEDS: PIPER-TAZO 3.375 GM IV (PMX) 100 ML IVPB SCH ×3 (07:00→22:17)
[2017-02-09 07:40] LABS: BASOPHILS % 0.2 % (0.0-2.0); EOSINOPHILS % 0.1 % (0.0-7.0); HEMATOCRIT 42.5 % (42.0-52.0); LYMPHOCYTES # 0.6 10^3/ul (0.8-2.9); LYMPHOCYTES % 3.6 % (15.0-51.0); MEAN CORPUSCULAR HEMOGLOBIN 29.1 pg (29.0-33.0); MEAN CORPUSCULAR HGB CONC 32.9 g/dl (32.0-37.0); MEAN CORPUSCULAR VOLUME 88.4 fl (82.0-101.0); MEAN PLATELET VOLUME 10.7 fl (7.4-10.4); MONOCYTE # 1.2 10^3/ul (0.3-0.9); MONOCYTES % 6.9 % (0.0-11.0); NEUTROPHILS % 88.6 % (39.0-77.0); PLATELET COUNT 239 10^3/UL (140-415); RED BLOOD COUNT 4.81 10^6/ul (4.70-6.10); RED CELL DISTRIBUTION WIDTH 13.2 % (11.5-14.5); WHITE BLOOD COUNT 17.6 10^3/ul (4.8-10.8)
[2017-02-09 08:10] LABS: ALBUMIN 2.8 g/dl (3.3-4.9); ALBUMIN/GLOBULIN RATIO 0.96; BILIRUBIN,INDIRECT 0.9 mg/dl (0-1.1); BILIRUBIN,TOTAL 0.9 mg/dl (0.2-1.3); CALCIUM 8.5 mg/dl (8.4-10.2); CREATININE 0.98 mg/dl (0.61-1.24); POTASSIUM 3.8 mmol/L (3.5-5.1); TOTAL PROTEIN 5.7 g/dl (6.1-8.1)
[2017-02-09 08:21] LABS: TROPONIN-I 20.8 ng/ml (0.00-0.12)
[2017-02-09] MEDS: ASPIRIN (EC) 81 MG TAB PO SCH (08:24)
[2017-02-09] MEDS: SPIRONOLACTONE 25 MG TAB PO SCH (08:25)
[2017-02-09] MEDS: LOSARTAN 25 MG TAB PO SCH ×2 (08:25→22:17)
[2017-02-09] MEDS: DOCUSATE SODIUM 100 MG CAP PO SCH ×2 (08:26→21:00)
[2017-02-09] MEDS: METOPROLOL (XL) 100 MG TAB PO SCH (08:32)
--- NOTE | 2017-02-09 08:59 | PN ---
Date/Time of Note Date/Time of Note DATE: 02/09/17 TIME: 08:59 Assessment/Plan Lines/Catheters IV Catheter Type (from Nrs): Peripheral IV Assessment/Plan Assessment/Plan ASSESSMENT: A 56-year-old male who came in with chest pain, radiating to the back of 4 days' duration, now managed as follows: . 1. ST elevation myocardial infarction, status post emergent angiogram. * Patient had presentation of a late acute infarct on EKG . He is status post angiogram PCI with stent / trops trending down 2. Hypertension with good control. 3. Systemic inflammatory response syndrome * Was thought to be 2/2 to #1, patient having fever recurrence, r/o infectious cause 4. Dyslipidemia 5. Morbid obesity with BMI of 41. 6. Possible sleep apnea. 7. Severe Cardiomyopathy likely ischemic with EF 20% and elevated R heart pressure PLAN: Continue In-house supportive care / f/u cultures / Continue empiric abx May be d/c once 24hr fever free Continue ASA / BB / ARB / Spironolactone / Brilinta / Statin Plan to maximize ARB per cardio recommendations if BP tolerates Reinforce Diet and life style counselling Continue supportive care and current mgt Prophylaxis: SCDS Subjective 24 Hr Interval Summary Free Text/Dictation Patient having fever recurrence overnight Exam/Review of Systems Vital Signs Vitals Vital Signs Date Time Temp Pulse Resp B/P Pulse Ox O2 Delivery O2 Flow Rate FiO2 02/09/17 08:28 120 02/09/17 04:33 98.4 19 136/80 98 02/08/17 20:00 Nasal Cannula 2.0 Intake and Output 02/08/17 02/08/17 02/09/17 15:00 23:00 07:00 Intake Total 250 ml 440 ml Output Total 350 ml 150 ml Balance -100 ml 290 ml Results Result Diagram: 02/09/17 0701 02/09/17 0701 Results 24 hrs Laboratory Tests Test 02/08/17 21:30 02/09/17 07:01 Urine Opiates Screen Positive Urine Barbiturates Negative Urine Amphetamines Screen Negative Urine Benzodiazepines Screen Positive Urine Cocaine Screen Negative Urine Cannabinoids Negative White Blood Count 17.6 H Red Blood Count 4.81 Hemoglobin 14.0 Hematocrit 42.5 Mean Corpuscular Volume 88.4 Mean Corpuscular Hemoglobin 29.1 Mean Corpuscular Hemoglobin Concent 32.9 Red Cell Distribution Width 13.2 Platelet Count 239 Mean Platelet Volume 10.7 H Neutrophils % 88.6 H Lymphocytes % 3.6 L Monocytes % 6.9 Eosinophils % 0.1 Basophils % 0.2 Nucleated Red Blood Cells % 0.0 Neutrophils # (Manual) 15.6 H Lymphocytes # 0.6 L Monocytes # 1.2 H Eosinophils # 0.0 Basophils # 0.0 Nucleated Red Blood Cells # 0.0 Sodium Level 139 Potassium Level 3.8 Chloride Level 106 Carbon Dioxide Level 25 Anion Gap 12 Blood Urea Nitrogen 18 Creatinine 0.98 Glucose Level 112 Calcium Level 8.5 Total Bilirubin 0.9 Direct Bilirubin 0.00 Indirect Bilirubin 0.9 Aspartate Amino Transf (AST/SGOT) 81 #H Alanine Aminotransferase (ALT/SGPT) 56 Alkaline Phosphatase 62 Creatine Kinase 387 #H Creatine Kinase Index 2.3 Creatinine Kinase MB (Mass) 9.00 H Troponin I 20.800 *H Total Protein 5.7 L Albumin 2.8 L Globulin 2.90 Albumin/Globulin Ratio 0.96 Medications Medications Current Medications Aspirin (Halfprin) 81 mg DAILY PO Last administered on 02/09/17 08:24; Admin Dose 81 MG; Start 02/08/17 at 09:00 Ticagrelor (Brilinta) 90 mg BID PO Last administered on 02/09/17 08:25; Admin Dose 90 MG; Start 02/07/17 at 21:00 Losartan Potassium (Cozaar) 25 mg BID PO Last administered on 02/09/17 08:25; Admin Dose 25 MG; Start 02/07/17 at 21:00 Atorvastatin Calcium (Lipitor) 80 mg DAILY@21 PO Last administered on 02/08/17 21:24; Admin Dose 80 MG; Start 02/07/17 at 21:00 Pantoprazole (Protonix Tab) 40 mg DAILY@06 PO Last administered on 02/09/17 07: 00; Admin Dose 40 MG; Start 02/08/17 at 06:00 Docusate Sodium (Colace) 100 mg BID PO Last administered on 02/08/17 21:24; Admin Dose 100 MG; Start 02/07/17 at 21:00 Ondansetron HCl (Zofran Inj) 4 mg Q6H PRN IV NAUSEA AND/OR VOMITING; Start 02/07 at 17:30 Spironolactone 25 mg 25 mg DAILY PO Last administered on 02/09/17 08:25; Admin Dose 25 MG; Start 02/08/17 at 12:00 Sodium Chloride (NS) 1,000 ml @ 100 mls/hr Q10H IV Last administered on 08:26; Admin Dose 100 MLS/HR; Start 02/08/17 at 12:00 Acetaminophen 650 mg 650 mg Q4H PRN PO PAIN AND OR ELEVATED TEMP Last administered on 02/08/17 18:26; Admin Dose 650 MG; Start 02/08/17 at 18:30 Piperacillin Sod/ Tazobactam Sod (Zosyn 3.375gm/ 100 ml (Pmx)) 100 ml @ 200 mls /hr Q8 IVPB Last administered on 02/09/17 07:00; Admin Dose 200 MLS/HR; Start 02/08/17 at 20:00 Metoprolol Succinate (Toprol Xl) 200 mg DAILY PO Last administered on 02/09/17 08:32; Admin Dose 200 MG; Start 02/09/17 at 09:00 Procedures Procedures Echocardiogram Report Patient Name: MAAME BUTLER Gender: Male Date: 1960 Study Date: 08-Feb-2017 Under Cutter: Xiang Aguirre RDCS Location: [address] [place] [address]. Physician: LAURA THOMAS Quality: Adequate Procedures: Transthoracic echocardiogram with complete 2D, M-Mode, and doppler examination. Indications: Myocardial Infarction. 2D/M Mode Doppler Measurement Value Normal Ranges Measurement Value Normal Ranges LVIDd 2D 3.8 3.5 - 5.6 cm AV Peak Joel 1.5 m/sec LVIDs 2D 2.8 2.1 - 4.1 cm AV Peak PG 9.0 mmHg FS 2D 26.7 % LVOT Peak Joel 1.2 m/sec LVPWd 2D 1.3 0.6 - 1.1 cm LVOT Peak PG 6.0 mmHg IVSd 2D 1.4 0.6 - 1.1 cm MV E Peak Joel 0.7 m/sec IVS/LVPW 2D 1.1 MV A Peak Joel 1.0 m/sec AoR Diam 2D 2.9 2.0 - 3.7 cm MV E/A 0.7 LA/Ao 2D 1 0 - 1 MV Decel Time 99 msec LA Dimen 2D 3.8 2.3 - 4.0 cm MV E/A 0.7 Findings Left Ventricle: Normal left ventricular cavity size. Moderate concentric left ventricular hypertrophy. Severe left ventricular systolic dysfunction. Ejection fraction is visually estimated at 20 %. Tissue Doppler/Mitral Doppler indices are consistent with impaired relaxation (Stage I diastolic dysfunction). These segments of the LV are hypokinetic apical septum and anteroseptum mid segment. Right Ventricle: Normal right ventricular size. Normal right ventricular systolic function. Left Atrium: The left atrium is normal in size. Right Atrium: The right atrium is normal in size. Mitral Valve: Normal appearance and function of the mitral valve with trace physiologic regurgitation. Aortic Valve: No significant aortic stenosis or insufficiency. Aortic cusps appear mildly calcified. Tricuspid Valve: Normal appearance of the tricuspid valve. Unable to obtain RVSP due to minimal presence of tricuspid regurgitation. Pulmonic Valve: Pulmonic valve not well visualized. Pericardium: Normal pericardium with no significant pericardial effusion. Aorta: Normal aortic root. IVC: Dilated IVC without respiratory collapse consistent with elevated right atrial pressure. Conclusions Technically difficult study due to body habitus. Severely reduced left ventricular systolic function with akinesis of the apex and mid-distal septum and anteroseptum. Impaired diastolic function. Dilated IVC suggestive of elevated right heart pressures. Electronically Signed By: Laura Thomas 08-Feb-2017 11:06:07 -0700 Patient Name: MAAME BUTLER Study Date: 08-Feb-2017 [id number] RONALDO CANELA Feb 09, 2017 08:59
--- NOTE | 2017-02-09 11:20 | RADRPT ---
PROCEDURE: US Lower extremity Venous. CLINICAL INDICATION: Bilateral lower extremity edema TECHNIQUE: Multiple sonographic images of the bilateral lower extremity deep venous system was obt ained utilizing grayscale, color-flow, compressive sonography and doppler imaging with augmentation. The images were reviewed on a PACS workstation. COMPARISON: None. FINDINGS: There is normal compressibility and flow within the bilateral common femoral, femoral , posterior ti bial and popliteal veins. RPTAT: AA IMPRESSION: No sonographic evidence for deep venous thrombosis. .Malvin Fan MD, MD Date Time Electronically viewed and signed by .Malvin Fan MD, on 02/09/2017 11:20 .S/
--- NOTE | 2017-02-09 19:16 | RADRPT ---
Vent Rate: 106 bpm RR Interval: 0 msec WV Interval: 134 msec QRS Duration: 82 msec QT Interval: 316 msec QTC Interval: 419 msec P-R-T Murray: 43 - 37 - 108 degrees Sinus tachycardia Cannot rule out Anteroseptal infarct , age undetermined Abnormal ECG Electronically Signed By: Poli Núñez [id number]
[2017-02-09] MEDS: ATORVASTATIN 80 MG TAB PO SCH (22:17)
[2017-02-10] VITALS (7 sets, daily range): BP systolic 117–131; BP diastolic 68–82; PULSE 87–100; RESP 17–18
[2017-02-10] MEDS: SOD CHLORIDE 0.9% 1,000 ML IV SCH (04:00)
[2017-02-10] MEDS: PIPER-TAZO 3.375 GM IV (PMX) 100 ML IVPB SCH (05:59)
[2017-02-10] MEDS: PANTOPRAZOLE (EC) 40 MG TAB PO SCH (05:59)
[2017-02-10 07:51] LABS: BASOPHILS % 0.3 % (0.0-2.0); EOSINOPHILS # 0.1 10^3/ul (0.0-0.5); EOSINOPHILS % 0.7 % (0.0-7.0); HEMATOCRIT 40.9 % (42.0-52.0); HEMOGLOBIN 13.3 g/dl (14.0-18.0); LYMPHOCYTES # 0.7 10^3/ul (0.8-2.9); LYMPHOCYTES % 5.8 % (15.0-51.0); MEAN CORPUSCULAR HEMOGLOBIN 28.7 pg (29.0-33.0); MEAN CORPUSCULAR HGB CONC 32.5 g/dl (32.0-37.0); MEAN CORPUSCULAR VOLUME 88.3 fl (82.0-101.0); MEAN PLATELET VOLUME 10.8 fl (7.4-10.4); MONOCYTE # 1.1 10^3/ul (0.3-0.9); MONOCYTES % 8.5 % (0.0-11.0); NEUTROPHILS % 84.1 % (39.0-77.0); PLATELET COUNT 243 10^3/UL (140-415); RED BLOOD COUNT 4.63 10^6/ul (4.70-6.10); RED CELL DISTRIBUTION WIDTH 13.3 % (11.5-14.5); WHITE BLOOD COUNT 12.4 10^3/ul (4.8-10.8)
[2017-02-10] MEDS: SPIRONOLACTONE 25 MG TAB PO SCH (08:11)
[2017-02-10] MEDS: METOPROLOL (XL) 100 MG TAB PO SCH (08:12)
[2017-02-10] MEDS: DOCUSATE SODIUM 100 MG CAP PO SCH (08:12)
[2017-02-10 08:13] LABS: CALCIUM 8.3 mg/dl (8.4-10.2); CREATININE 1.02 mg/dl (0.61-1.24); MAGNESIUM 2.1 mg/dl (1.7-2.5); POTASSIUM 3.3 mmol/L (3.5-5.1)
[2017-02-10] MEDS: LOSARTAN 25 MG TAB PO SCH (08:14)
[2017-02-10] MEDS: ASPIRIN (EC) 81 MG TAB PO SCH (08:15)
[2017-02-10] MEDS: TICAGRELOR 90 MG TABLET PO SCH (08:23)
--- NOTE | 2017-02-10 09:28 | PDOCDIS ---
Discharge Instructions CONDITION Patient Condition: Stable HOME CARE INSTRUCTIONS: Diet Instructions: Low Fat /CholesterolSpecial Diet: cardiac ACTIVITY: Activity Restrictions: Slowly Increase Activity FOLLOW UP/APPOINTMENTS Follow-up Plan Follow-up with your primary care Doctor within a week or 2 OTHER ORDERS: Other Orders: Call 911 and go to the nearest ER if you develop any chest pain, shortness of breath, lightheadedness, palpitations, fever, bleeding. PANKAJ VAUGHAN MD Feb 10, 2017 09:28
[2017-02-10] MEDS ORDERED: NIT4 SL (09:33)
[2017-02-10] MEDS ORDERED: SPIR25TA PO (09:33)
[2017-02-10] MEDS ORDERED: LOSA25TA2 PO (09:33)
[2017-02-10] MEDS ORDERED: METO100T13 PO (09:33)
[2017-02-10] MEDS ORDERED: ASPI-664 PO (09:33)
[2017-02-10] MEDS ORDERED: TICA90TA PO (09:33)
--- NOTE | 2017-02-10 09:44 | DS ---
Date/Time of Note Date/Time of Note DATE: 02/10/17 TIME: 09:37 Discharge Summary Admission/Discharge Info Admit Date/Time Feb 07, 2017 at 12:10 Discharge Date/Time Hospital Course 56 year-old with with a history of hypertension and obesity with a BMI of 44 who presented with chest pain and late presentation of STEMI. He underwent coronary angiogram, left heart catheterization, left ventriculography, PCI of OM1 with placement of 2.25x20 mm Synergy drug-eluting stent. 2D echo showed severely reduced LVEF, 20%. Postprocedure hospitalization was uneventful except a fever of 101 two days ago. Urine culture and blood culture been negative. He has been on Zosyn for the past 2 days. Currently he is chest pain -free and stated that he feels as if he is almost back to where he was. He will be discharged in stable condition with instruction to go to the nearest ER if he develops any chest pain, shortness of breath, lightheadedness or palpitation. He is accompanied by his who is currently at the bedside and they stated that they will be flying back to [place] 2 days from now, on Tuesday. Cardiac cath operative report LM - normal LAD - 50% mid lesion, 95% proximal D1 (small vessel less than 2 mm) LCX - 99% high OM1 with ANDREW 2 flow, lesion length 14 mm from ostium of the vessel to the most critical portion of the lesion, type B lesion RCA - dominant vessel with mild luminal irregularities LV - EF 35% with akinesis of mid-distal anterolateral wall and apex, gradient upon pullback 13 mm . Home Meds Active Scripts Nitroglycerin* (Nitrostat*) 0.4 Mg Tab.subl, 1 TAB SL .Q5M UP TO 3 DOSES Y for CHEST PAIN, #30 Prov:PANKAJ VAUGHAN MD 02/10/17 Spironolactone* (Aldactone*) 25 Mg Tablet, 25 MG PO DAILY for 30 Days, TAB 1 Refill Prov:PANKAJ VAUGHAN MD 02/10/17 Metoprolol Succinate* (Toprol XL*) 100 Mg Tab.sr.24h, 200 MG PO DAILY for 30 Days, 1 Refill Prov:PANKAJ VAUGHAN MD 02/10/17 Losartan Potassium* (Cozaar*) 25 Mg Tablet, 25 MG PO BID for 30 Days, TAB 1 Refill Prov:PANKAJ VAUGHAN MD 02/10/17 Ticagrelor* (Brilinta*) 90 Mg Tablet, 90 MG PO BID, #30 TAB 1 Refill Prov:PANKAJ VAUGHAN MD 02/10/17 Aspirin (Low Dose Aspirin) 81 Mg Tablet., 81 MG PO DAILY, #30 TAB 1 Refill Prov:PANKAJ VAUGHAN MD 02/10/17 Reported Medications Multivitamins* (Theragran*) 1 Tab Tab, 1 TAB PO DAILY, TAB 02/07/17 Omeprazole* (Omeprazole*) 20 Mg Capsule., 20 MG PO DAILY, #30 CAP 02/07/17 Discontinued Reported Medications Losartan Potassium* (Losartan Potassium*) 100 Mg Tablet, 100 MG PO DAILY, TAB 02/07/17 Primary Care Provider Not On Staff Doctor Pending Labs Laboratory Tests Test 02/10/17 07:21 White Blood Count 12.410^3/ul (4.8-10.8) Red Blood Count 4.6310^6/ul (4.70-6.10) Hemoglobin 13.3g/dl (14.0-18.0) Hematocrit 40.9% (42.0-52.0) Mean Corpuscular Volume 88.3fl (82.0-101.0) Mean Corpuscular Hemoglobin 28.7pg (29.0-33.0) Mean Corpuscular Hemoglobin Concent 32.5g/dl (32.0-37.0) Red Cell Distribution Width 13.3% (11.5-14.5) Platelet Count 91348^3/UL (140-415) Mean Platelet Volume 10.8fl (7.4-10.4) Neutrophils % 84.1% (39.0-77.0) Lymphocytes % 5.8% (15.0-51.0) Monocytes % 8.5% (0.0-11.0) Eosinophils % 0.7% (0.0-7.0) Basophils % 0.3% (0.0-2.0) Nucleated Red Blood Cells % 0.0/100WBC (0.0-0.0) Neutrophils # (Manual) 10.410^3/ul (1.7-7.5) Lymphocytes # 0.710^3/ul (0.8-2.9) Monocytes # 1.110^3/ul (0.3-0.9) Eosinophils # 0.110^3/ul (0.0-0.5) Basophils # 0.010^3/ul (0.0-0.1) Nucleated Red Blood Cells # 0.010^3/ul (0.0-0.0) Sodium Level 142mmol/L (135-144) Potassium Level 3.3mmol/L (3.5-5.1) Chloride Level 110mmol/L (97-110) Carbon Dioxide Level 25mmol/L (21-31) Anion Gap 10 (8-16) Blood Urea Nitrogen 17mg/dl (7-20) Creatinine 1.02mg/dl (0.61-1.24) Glucose Level 110mg/dl (70-220) Calcium Level 8.3mg/dl (8.4-10.2) Magnesium Level 2.1mg/dl (1.7-2.5) PANKAJ VAUGHAN MD Feb 10, 2017 09:44
[2017-02-10] MEDS ORDERED: POTASSIUM CHLORIDE (SR) 20 MEQ TAB PO STA (10:29)
== END 2017-02-10 12:47 | disposition home or self-care (01) | DRG 246 ==
LOC: E/R 09:33 → ICU 12:10 → MS4 02-08 17:45
PROVIDERS: ADMIT Internal Medicine; ATTEND Internal Medicine
PROC: B211YZZ Fluoroscopy of Multiple Coronary Arteries using Other Contrast (ICD-10-PCS; 2017-02-07)
PROC: B215YZZ Fluoroscopy of Left Heart using Other Contrast (ICD-10-PCS; 2017-02-07)
PROC: 027034Z Dilation of Coronary Artery, One Artery with Drug-eluting Intraluminal Device, Percutaneous Approach (ICD-10-PCS; principal; 2017-02-07 14:30)
PROC: 4A023N7 Measurement of Cardiac Sampling and Pressure, Left Heart, Percutaneous Approach (ICD-10-PCS; 2017-02-07 14:30)
DX: I21.3 ST elevation (STEMI) myocardial infarction of unspecified site (principal); R65.11 Systemic inflammatory response syndrome (SIRS) of non-infectious origin with acute organ dysfunction; Z68.41 Body mass index [BMI] 40.0-44.9, adult; I25.5 Ischemic cardiomyopathy; E66.01 Morbid (severe) obesity due to excess calories; I10 Essential (primary) hypertension; E78.5 Hyperlipidemia, unspecified; G47.30 Sleep apnea, unspecified
CPT/HCPCS: 36415; 71010; 71275; 80048; 80053; 80061; 80076; 80307; 82550; 82553; 83036; 83605; 83735; 84443; 84484; 85025; 87040; 87081; 87086; 93005; 93306; 93458; 93970; 96374; 96375; 96376; C1725; C1874; C1887; J1644; J2270; J2405; J2543; J3010; J7030; Q9967